=== PATIENT | female | born 1990 | race Two or more races ===

== ENCOUNTER 2016-12-04 18:05 | Inpatient (IN) | payer SELFPAY ==
[~2016-12-04] VITALS: Ht 157.5 cm; Wt 73.5 kg
[2016-12-04] MEDS ORDERED: IV NORMAL SALINE 1000ML BAG 1,000 ML IV SCH ×2 (19:53→21:15)
[2016-12-04 20:04] LABS: BASO % 1 % (0-3); EOS % 5 % (0-3); HEMATOCRIT 40.9 % (36.0-47.0); HEMOGLOBIN 14.2 g/dL (12.0-15.5); LYMPH # 2.3 x10^3/uL (1.0-4.8); LYMPH % 24 % (24-48); MEAN CORPUSCULAR HEMOGLOBIN 30 pg (25-35); MEAN CORPUSCULAR HGB CONC 35 g/dL (31-37); MEAN CORPUSCULAR VOLUME 85 fL (79-100); MONO % 8 % (0-9); NEUT % 63 % (31-73); PLATELET COUNT 302 x10^3/uL (140-400); RED BLOOD COUNT 4.79 x10^6/uL (3.50-5.40); WHITE BLOOD COUNT 9.2 x10^3/uL (4.0-11.0)
[2016-12-04 20:15] LABS: INR 0.9 (0.8-1.1); PROTHROMBIN TIME PATIENT 11.7 SEC (11.7-14.0)
[2016-12-04 20:24] LABS: CALCIUM 9.1 mg/dL (8.5-10.1); CREATININE 0.8 mg/dL (0.6-1.0); GFR 87.4; POTASSIUM 3.8 mmol/L (3.5-5.1)
--- NOTE | 2016-12-04 20:26 | PHYS DOC ---
Past Medical History Past Medical History: No Pertinent History Past Surgical History: , Other Additional Past Surgical Histo: x2 Alcohol Use: None Drug Use: None Adult General Chief Complaint Chief Complaint: VAGINAL BLEEDING HPI HPI Patient is a 26 year old female who presents with complaint of vaginal bleeding for 2 days. Patient states that she is approximately 6-7 weeks as her last menstrual period was "in the middle of September." Patient is A2. Patient states that she was evaluated 2 days ago at [facility] and states that they found an intrauterine with pole and no heart rate with estimated gestational age at 6 weeks. Patient states that she has had progressively worsening bleeding and has soaked through 4 pads alone today. Patient has been having lower abdominal cramping associated with her symptoms. Denies fevers or urinary symptoms. Patient currently rates her pain as 7 out of 10. Patient has not taken any medications to help with symptoms at this time. Review of Systems Review of Systems Constitutional: Denies fever or chills [] Eyes: Denies change in visual acuity, redness, or eye pain [] HENT: Denies nasal congestion or sore throat [] Respiratory: Denies cough or shortness of breath [] Cardiovascular: Denies chest pain or edema [] GI: Abdominal pain, denies nausea, vomiting, bloody stools or diarrhea [] : Pelvic pain, vaginal bleeding [] Musculoskeletal: Denies back pain or joint pain [] Integument: Denies rash or skin lesions [] Neurologic: Denies headache, focal weakness or sensory changes [] Current Medications Current Medications Current Medications Medications (Trade) Dose Ordered Sig/[facility] Start Time Stop Time Status Last Admin Dose Admin Sodium Chloride 1,000 ml @ 1,000 mls/hr Q1H 12/04/16 19:53 12/04/16 20:52 DC 12/04/16 20:06 1,000 MLS/HR Physical Exam Physical Exam Constitutional: Alert, afebrile, appears in mild to moderate discomfort. [] HENT: Normocephalic, atraumatic, bilateral external ears normal, oropharynx moist, no oral exudates, nose normal. [] Eyes: PERRLA, EOMI, conjunctiva normal, no discharge. [] Neck: Normal range of motion, no tenderness, supple, no stridor. [] Cardiovascular:Heart rate regular rhythm, no murmur [] Lungs & Thorax: Bilateral breath sounds clear to auscultation [] Abdomen: Bowel sounds normal, soft, no tenderness, no masses, no pulsatile masses. Pelvic: Normal external exam, moderate amount of exsanguination present in vaginal canal on speculum exam, no tissue, cervical os closed on bimanual exam, no midline or bilateral adnexal tenderness on exam [] Skin: Warm, dry, no erythema, no rash. [] Back: No tenderness, no CVA tenderness. [] Extremities: No tenderness, no cyanosis, no clubbing, ROM intact, no edema. [] Neurologic: Alert and oriented X 3, normal motor function, normal sensory function, no focal deficits noted. [] Current Patient Data Vital Signs Vital Signs Date Time Temp Pulse Resp B/P (MAP) Pulse Ox O2 Delivery O2 Flow Rate FiO2 12/04/16 20:58 93 17 118/63 (81) 98 Room Air 12/04/16 19:33 98.4 98.4 Lab Values Laboratory Tests Test 12/04/16 19:35 12/04/16 19:53 White Blood Count 9.2 x10^3/uL (4.0-11.0) Red Blood Count 4.79 x10^6/uL (3.50-5.40) Hemoglobin 14.2 g/dL (12.0-15.5) Hematocrit 40.9 % (36.0-47.0) Mean Corpuscular Volume 85 fL (79-100) Mean Corpuscular Hemoglobin 30 pg (25-35) Mean Corpuscular Hemoglobin Concent 35 g/dL (31-37) Red Cell Distribution Width 13.0 % (11.5-14.5) Platelet Count 302 x10^3/uL (140-400) Neutrophils (%) (Auto) 63 % (31-73) Lymphocytes (%) (Auto) 24 % (24-48) Monocytes (%) (Auto) 8 % (0-9) Eosinophils (%) (Auto) 5 % (0-3) H Basophils (%) (Auto) 1 % (0-3) Neutrophils # (Auto) 5.8 x10^3uL (1.8-7.7) Lymphocytes # (Auto) 2.3 x10^3/uL (1.0-4.8) Monocytes # (Auto) 0.7 x10^3/uL (0.0-1.1) Eosinophils # (Auto) 0.4 x10^3/uL (0.0-0.7) Basophils # (Auto) 0.0 x10^3/uL (0.0-0.2) Prothrombin Time 11.7 SEC (11.7-14.0) Prothrombin Time INR 0.9 (0.8-1.1) PTT 28 SEC (24-38) Maternal Serum HCG Beta Subunit 3724 mIU/mL (0-6) H Sodium Level 138 mmol/L (136-145) Potassium Level 3.8 mmol/L (3.5-5.1) Chloride Level 102 mmol/L (98-107) Carbon Dioxide Level 29 mmol/L (21-32) Anion Gap 7 (6-14) Blood Urea Nitrogen 11 mg/dL (7-20) Creatinine 0.8 mg/dL (0.6-1.0) Estimated GFR (Cockcroft-Gault) 87.4 BUN/Creatinine Ratio 14 (6-20) Glucose Level 99 mg/dL (70-99) Calcium Level 9.1 mg/dL (8.5-10.1) Magnesium Level 1.9 mg/dL (1.8-2.4) Total Bilirubin 0.2 mg/dL (0.2-1.0) Aspartate Amino Transferase (AST) 21 U/L (15-37) Alanine Aminotransferase (ALT) 30 U/L (14-59) Alkaline Phosphatase 82 U/L (46-116) Total Protein 8.0 g/dL (6.4-8.2) Albumin 3.6 g/dL (3.4-5.0) Albumin/Globulin Ratio 0.8 (1.0-1.7) L Laboratory Tests 12/04/16 19:35 Laboratory Tests 12/04/16 19:53 EKG EKG Not performed [] Radiology/Procedures Radiology/Procedures [facility] [address] [place], [place] [id number] IMAGING REPORT Signed PATIENT: JETT DAMON ACCOUNT: [id number] : 1990 LOCATION: [address] [place] [address] AGE: 26 SEX: F EXAM STATUS: ADM IN ORD. PHYSICIAN: LAMIN ARTIS MD REASON: vaginal bleeding, approximately 6 weeks PROCEDURE: PREG 1ST TRIMESTER Ultrasound 1st trimester Indication: Heavy bruit bleeding in a patient. There is an intrauterine gestational sac containing a pole. The crown-rump length measurements approximately 5 millimeters consistent with 6 weeks 1 day gestation. No heart motion is identified. The gestational sac is in a low position within the lower endometrium and endocervical canal consistent with spontaneous in progress. No perigestational sac hemorrhage is seen. The ovaries are unremarkable with normal blood flow. No free fluid is seen. Impression: Findings consistent with approximately 6 week demise. There appears to be a spontaneous in progress with the gestational sac in a a very low position, as described. Electronically signed by: Yuriy Lacey MD (December 04, 2016 21:11:06) DICTATED and SIGNED BY: YURIY LACEY MD DATE: 12/04/162110 CC: LAMIN ARTIS MD; CHON COSTELLO MD; NON,STAFF ~ [] Course & Med Decision Making Course & Med Decision Making Pertinent Labs and Imaging studies reviewed. (See chart for details) Patient's ultrasound and exam are concerning for incomplete miscarriage. I spoke with Dr. Costello of [facility] who agreed to admit patient to the hospital under observation status to the patient's significant bleeding at this time. Spoke with patient regarding plan of care and she is in agreement at this time. Dragon Disclaimer Dragon Disclaimer This electronic medical record was generated, in whole or in part, using a voice recognition dictation system. Departure Departure Impression: Primary Impression: Incomplete Disposition: 09 ADMITTED INPATIENT Admitting Physician: Other Condition: STABLE Referrals: NON,STAFF (PCP) LAMIN ARTIS MD December 04, 2016 20:26
[2016-12-04 20:30] LABS: ALBUMIN 3.6 g/dL (3.4-5.0); ALBUMIN/GLOBULIN RATIO 0.8 (1.0-1.7); MAGNESIUM 1.9 mg/dL (1.8-2.4); TOTAL BILIRUBIN 0.2 mg/dL (0.2-1.0)
--- NOTE | 2016-12-04 21:12 | RAD ---
Ultrasound 1st trimester Indication: Heavy bruit bleeding in a patient. There is an intrauterine gestational sac containing a pole. The crown-rump length measurements approximately 5 millimeters consistent with 6 weeks 1 day gestation. No heart motion is identified. The gestational sac is in a low position within the lower endometrium and endocervical canal consistent with spontaneous in progress. No perigestational sac hemorrhage is seen. The ovaries are unremarkable with normal blood flow. No free fluid is seen. Impression: Findings consistent with approximately 6 week demise. There appears to be a spontaneous in progress with the gestational sac in a a very low position, as described. Electronically signed by: Yuriy Lacey MD (December 04, 2016 21:11:06)
[2016-12-04] MEDS ORDERED: ONDANSETRON PF 4 MG/2 ML VIAL. IV PRN (21:15)
[2016-12-04] MEDS ORDERED: ACETAMINOPHEN 325 MG TABLET. PO PRN (21:15)
[2016-12-04 22:20] VITALS: BP 107/68
[2016-12-04] MEDS ORDERED: ZOLPIDEM 5 MG TABLET. PO PRN (23:15)
[2016-12-04] MEDS: IBUPROFEN 800 MG TABLET. PO PRN (23:44)
[2016-12-04] MEDS ORDERED: IV RINGERS,LACTATED 1000ML 1,000 ML IV SCH (23:45)
[2016-12-05 06:11] LABS: CALCIUM 8.3 mg/dL (8.5-10.1); CREATININE 0.7 mg/dL (0.6-1.0); POTASSIUM 3.8 mmol/L (3.5-5.1)
[2016-12-05 06:15] VITALS: BP 88/55
[2016-12-05 06:45] LABS: BASO % 1 % (0-3); EOS % 5 % (0-3); HEMATOCRIT 32.2 % (36.0-47.0); HEMOGLOBIN 11.3 g/dL (12.0-15.5); LYMPH # 2.4 x10^3/uL (1.0-4.8); LYMPH % 32 % (24-48); MEAN CORPUSCULAR HEMOGLOBIN 30 pg (25-35); MEAN CORPUSCULAR HGB CONC 35 g/dL (31-37); MEAN CORPUSCULAR VOLUME 85 fL (79-100); MONO % 7 % (0-9); NEUT % 55 % (31-73); PLATELET COUNT 239 x10^3/uL (140-400); RED BLOOD COUNT 3.79 x10^6/uL (3.50-5.40); RED CELL DISTRIBUTION WIDTH 12.6 % (11.5-14.5); WHITE BLOOD COUNT 7.5 x10^3/uL (4.0-11.0)
[2016-12-05 10:20] VITALS: BP 103/59
[2016-12-05] MEDS ORDERED: IV RINGERS,LACTATED 1000ML 1,000 ML IV SCH (13:08)
[2016-12-05] MEDS ORDERED: MORPHINE SULFATE 2 MG/ML DISP.SYRIN. IV PRN (13:15)
[2016-12-05] MEDS ORDERED: fentaNYL PF VIAL 100 MCG/2 ML VIAL IV PRN (13:15)
[2016-12-05] MEDS ORDERED: PROCHLORPERAZINE 10 MG/2 ML VIAL. IV PRN (13:15)
[2016-12-05] MEDS ORDERED: LIDOCAINE 1% 1 ML SYRINGE. ID PRN (13:15)
[2016-12-05] MEDS ORDERED: ONDANSETRON PF 4 MG/2 ML VIAL. IV PRN (13:15)
[2016-12-05] MEDS ORDERED: PROPOFOL 20 ML IV ONE (13:30)
[2016-12-05] MEDS ORDERED: ONDANSETRON PF 4 MG/2 ML VIAL. ONE (13:30)
[2016-12-05] MEDS ORDERED: DEXAMETHASONE SOD PHOS 20 MG/5 ML VIAL. ONE (13:30)
[2016-12-05] MEDS ORDERED: fentaNYL PF VIAL 100 MCG/2 ML VIAL ONE (13:31)
[2016-12-05] MEDS ORDERED: miSOPROStol 200MCG TAB 200 MCG TABLET ONE (13:34)
[2016-12-05] MEDS ORDERED: OXYTOCIN 10 UNIT/ML VIAL. ONE ×2 (13:34→13:59)
--- NOTE | 2016-12-05 14:04 | PDOC ---
BRIEF OPERATIVE NOTE Pre-Op Diagnosis Incomplete Ab Post-Op Diagnosis Same Procedure Performed Suction D and C Surgeon Trang Anesthesia Type: General Blood Loss 20cc Specimens Obtained POC Complications None CHON NIXON MD December 05, 2016 14:04
[2016-12-05] MEDS ORDERED: METH0.2T36 PO (14:11)
[2016-12-05] MEDS ORDERED: DOXY100C14 PO (14:11)
[2016-12-05] MEDS ORDERED: NAPR550T3 PO (14:11)
[2016-12-05] MEDS ORDERED: HYDR-971 PO (14:11)
--- NOTE | 2016-12-05 14:14 | PDOC3 ---
OB DISCHARGE SUMMARY DATE OF ADMISSION: 12/04/16 DATE OF DISCHARGE: 12/05/16 REASON FOR ADMISSION: Vaginal bleeding, Spontaneous aboration PROCEDURES: Ultrasound INTRAPARTUM PROCEDURES: Others (D and C) OPERATIONS: None PROBLEM LIST AT DISCHARGE Problems Medical Problems: (1) Incomplete Status: Acute (2) Threatened miscarriage Status: Acute DISCHARGE DIAGNOSIS: Others DISCHARGE INFORMATION: Activity, Diet HOSPITAL COURSE Unremarkable CONDITION AT DISCHARGE Stable CHON NIXON MD December 05, 2016 14:13
--- NOTE | 2016-12-05 14:17 | PDOC1 ---
OB - History Hx of Present Care: Limited Care Ultrasounds: Abnormal US findings Medical Complications: None Past Family/Social History * Past Medical, Surgical, Family and Obstetric Histories reviewed from chart. Blood Type: Unknown Rubella: Unknown RPR/VDRL: Unknown GBS Status: Unknown HBsAG: Unknown OB - Chief Complaint & HPI Date of Admission: Date of Admission: December 04, 2016 at 20:59 Chief Complaint/History : 5 Para: 2 Reason for admission: vaginal bleeding Admission Nurse Assessment Rev: Yes Problems: OB - Admission Exam Physical Exam Vitals: VS - Last 72 Hours, by Label Date Time Temp Pulse Resp B/P (MAP) Pulse Ox O2 Delivery O2 Flow Rate FiO2 12/05/16 13:43 97.9 85 15 115/70 99 Room Air 97.9 12/05/16 06:15 98.3 80 18 88/55 (66) 96 Room Air 98.3 12/04/16 22:20 98.3 87 18 107/68 (81) 97 Room Air 98.3 12/04/16 20:58 93 17 118/63 (81) 98 Room Air 12/04/16 19:58 92 17 111/65 (80) 98 Room Air 12/04/16 19:33 98.4 16 144/71 (95) 97 Room Air 98.4 HEENT: Normal, Nasal Mucosa Normal, Oropharynx Normal, Moist Membranes, Fontanelles Normal Heart: Regular Rate Lungs: Clear, Equal Abdomen: Gravid Extremities: Normal Pulses, No tenderness or swelling Reflexes: Normal Cervical Dilatation: Fingertip Effacement: 0% Membranes: Ruptured Assessment/Plan Assessment/Plan 9 week incomplete Ab Suction D suzan C CHON NIXON MD December 05, 2016 14:17
[2016-12-05] MEDS: fentaNYL PF VIAL 100 MCG/2 ML VIAL IV PRN ×2 (14:24→14:30)
[2016-12-05] MEDS: HYDROmorphone 2 MG/ML VIAL IV PRN ×3 (14:39→15:10)
[2016-12-05 15:25] VITALS: BP 99/60
[2016-12-05 15:58] VITALS: BP 100/61
[2016-12-05] MEDS: IBUPROFEN 800 MG TABLET. PO PRN (16:32)
--- NOTE | 2016-12-05 17:36 | OP ---
DATE OF SURGERY: 12/05/2016 PREOPERATIVE DIAGNOSIS: Incomplete . POSTOPERATIVE DIAGNOSIS: Incomplete . PROCEDURE: Suction D and C. SURGEON: Chon Costello M.D. EDITOR MAP: None. ANESTHESIA: General. ESTIMATED BLOOD LOSS: 20 mL. FLUIDS: Crystalloid. SPECIMENS: Products of conception. COMPLICATIONS: None. CONDITION: Stable. DESCRIPTION OF PROCEDURE: Risks, benefits, indications, alternatives discussed in detail with the patient. The patient brought to the OR theater, placed in the dorsolithotomy position in [facility]. After adequate general anesthesia, patient was prepped and draped in usual sterile manner. Exam under anesthesia was performed. Uterus is approximately 10-week size, anteflexed, mobile, and no adnexal masses. Posterior weighted speculum was placed in the vaginal vault. Cervix was grasped with single tooth tenaculum. Hegar dilators were used to dilate the cervix up to receive another #11 curved suction cannula. Suction cannula was placed through the cervical os. Gentle suction curettage was performed in all quadrants. Products of conception were seen going through the clear tubing. Sharp curettage was then performed until uterine cry was heard. Suction cannula was once again placed. No further products of conception were seen going through the clear tubing. The tube was rinsed free with normal saline. Single tooth tenaculum was removed. Puncture sites were hemostatic. Vaginal vault was wiped free of any blood or tissue. The procedure was terminated. Sponge, needle and instrument counts correct times 2 per nursing staff. The patient went to postop anesthesia recovery in stable condition. CHON COSTELLO MD DR: ANGELA/anna JOB#: [id number] / [id number]
[2016-12-05 18:39] VITALS: BP 114/74
--- NOTE | 2016-12-08 12:48 | PATHOLOGY ---
PATHOLOGY REPORT * * * * * * * * FINAL DIAGNOSIS: Intrauterine contents, removal: - Chorionic villi present. REPORT ELECTRONICALLY SIGNED BY: Sathish Ybarra M.D. DATE/TIME: 12/08/2016 12:47 * * * * * * * * GROSS PATHOLOGY: Received in formalin labeled "Alyssa Oliver, products of conception," is a 9.3 x 3.1 x 1.0 cm aggregate of abundant blood clot admixed with spongiform, pink-jara tissue. tissue is not identified. Vesicular structures are not present. Driver Salesman tissue is submitted in cassettes A1-A3. (KAH; 12/07/2016) INITIAL CPT CODE(S): A; 53256 Professional services performed by [facility], [address] [place] [address]. Technical services performed by [facility], [address] [place] [address], [address], [place] [address]. SPECIMEN(S) RECEIVED: A.Products of conception CLINICAL HISTORY: Threatened PATIENT: ALYSSA OLIVER /AGE: 3 1990 (Age: 26) PATIENT #: [id number] ALT CASE #: SPECIMEN COLLECTION DATE: 12/05/2016 SPECIMEN RECEIVED DATE: 12/06/2016 [facility] - [address] [place] [address] - PHONE: [phone] * * * END OF REPORT * * *
== END 2016-12-05 19:06 | disposition home or self-care (01) | DRG 770 ==
LOC: ER 19:28 → 3 NORTH 20:59
PROVIDERS: ADMIT Specialist; ATTEND Specialist
PROC: 10D17ZZ Extraction of Products of Conception, Retained, Via Natural or Artificial Opening (ICD-10-PCS; principal; 2016-12-05 13:30)
DX: O03.4 Incomplete spontaneous abortion without complication (principal); Z3A.01 Less than 8 weeks gestation of pregnancy; Z37.1 Single stillbirth
CPT/HCPCS: 36415; 76801; 80048; 80053; 83735; 84702; 85027; 85610; 85730; 86850; 86900; 86901; 88305; 96360; C1888; J1100; J1170; J2405; J2590; J2704; J3010; J7030; J7120; 99285-25